=== PATIENT | female | born 1930 | race Caucasian/White ===

== ENCOUNTER 2017-03-10 11:03 | Inpatient (IN) | payer MEDICARE ==
[~2017-03-10] VITALS: Ht 147.3 cm; Wt 80.1 kg
[~2017-03-10 11:03] MED LIST: ACET325T51 PO; ASPI-555 PO; BISA10S PR; CHOL500045 PO; CLON-465 PO; CLOP75TA32 PO; FAMO-136 PO; FLUO20TA29 PO; FURO40TA5 PO; GABA-529 PO; INSU100V12 SQ; LEVO25TA54 PO; MAGN400O17 PO; METO200T49 PO; OLME40TA8 PO; POTA20TA82 PO; RANO10003 PO; SIMV40TA59 PO; TRAM50TA4 PO; [UNRECOGNIZED DRUG - CODE] PO
[2017-03-10 11:26] VITALS: BP 150/70
[2017-03-10 12:31] LABS: HEMATOCRIT 31.8 % (36-48); MEAN CORPUSCULAR HEMOGLOBIN 36.8 pg (27.0-33.0); MEAN CORPUSCULAR HGB CONC 35.2 g/dL (32.0-36.0); MEAN CORPUSCULAR VOLUME 104.6 fL (79-99); PLATELET COUNT (AUTO) 163 K/uL (130-400); RED BLOOD CELL COUNT(AUTO) 3.04 MIL/uL (4.00-5.50); WHITE BLOOD COUNT (AUTO) 12.5 K/uL (4.8-10.8)
[2017-03-10 12:39] LABS: POTASSIUM 3.4 mmol/L (3.5-5.1)
[2017-03-10] MEDS ORDERED: DEXTROSE 50%-WATER 50 ML DISP.SYRIN IV PRN ×2 (13:45→14:00)
[2017-03-10] MEDS ORDERED: GLUCAGON 1MG KIT 1 MG ML IM PRN ×2 (13:45→14:00)
[2017-03-10] MEDS ORDERED: DEXTROSE 50%-WATER 50 ML DISP.SYRIN IV ONE (13:46)
[2017-03-10] MEDS ORDERED: POTASSIUM CHLORIDE 10% ELIXIR 20 MEQ/15 ML UDCUP PO PRN (14:00)
[2017-03-10] MEDS: SODIUM CHLORIDE 0.9% 1000ML 1,000 ML IV SCH (14:00)
[2017-03-10] MEDS ORDERED: POTASSIUM CHLORIDE 20MEQ/100ML 100 ML IV PRN (14:00)
[2017-03-10] MEDS ORDERED: LIDOCAINE HCL-MPF 1% 2ML VIAL IJ PRN (14:00)
[2017-03-10] MEDS ORDERED: PROMETHAZINE HCL 25 MG/ML 1ML AMPULE IM PRN (14:15)
[2017-03-10 16:00] VITALS: BP 152/65
[2017-03-10] MEDS: INSULIN R PO SSI SQ SCH ×2 (16:30→21:00)
[2017-03-10] MEDS: LEVOFLOXACIN 250 MG/D5W 50ML 50 ML IVPB SCH (17:33)
[2017-03-10] MEDS: IPRATROPIUM/ALBUTEROL SULFATE 3 ML SOLUTION IH SCH ×2 (19:00→23:46)
[2017-03-10 20:00] VITALS: BP 157/69
[2017-03-10] MEDS ORDERED: ACETAMINOPHEN 325 MG TAB PO PRN (20:15)
[2017-03-10] MEDS ORDERED: BISA10SU61 RC (20:15)
[2017-03-10] MEDS ORDERED: ASCO10007 PO (20:15)
[2017-03-10] MEDS ORDERED: METO25TA6 PO (20:15)
[2017-03-10] MEDS ORDERED: CLOT15C TP (20:15)
[2017-03-10] MEDS ORDERED: CYAN500 PO (20:15)
[2017-03-10] MEDS ORDERED: MOM30 PO (20:15)
[2017-03-10] MEDS ORDERED: POTA10TA14 PO (20:15)
[2017-03-10] MEDS ORDERED: CLOP75TA32 PO (20:15)
[2017-03-10] MEDS ORDERED: CELE-84 PO (20:15)
[2017-03-10] MEDS ORDERED: MAGNESIUM HYDROXIDE 30 ML/UDCUP PO SCH (20:15)
[2017-03-10] MEDS ORDERED: INSU100V12 SQ ×2 (20:15)
[2017-03-10] MEDS ORDERED: FURO40TA5 PO (20:15)
[2017-03-10] MEDS ORDERED: GABA-529 PO ×2 (20:15)
[2017-03-10] MEDS ORDERED: BISACODYL 10 MG SUPP.RECT RC PRN (20:15)
[2017-03-10] MEDS ORDERED: CHOL100018 PO (20:15)
[2017-03-10] MEDS ORDERED: SENN1TAB72 PO (20:15)
[2017-03-10] MEDS ORDERED: LEVO25TA54 PO (20:15)
[2017-03-10] MEDS ORDERED: ASPI-555 PO (20:15)
[2017-03-10] MEDS ORDERED: FLUO20TA29 PO (20:15)
[2017-03-10] MEDS ORDERED: ATOR40TA69 PO (20:15)
[2017-03-10] MEDS ORDERED: RANO500T3 PO (20:15)
[2017-03-10] MEDS ORDERED: FURO20TA4 PO (20:15)
[2017-03-10] MEDS ORDERED: PANT40TA25 PO (20:15)
[2017-03-10] MEDS ORDERED: SENNA DOCUSATE SODIUM PO PRN (20:15)
[2017-03-10] MEDS ORDERED: METO-391 PO (20:15)
[2017-03-10] MEDS ORDERED: ACET325T51 PO (20:15)
[2017-03-10 20:45] LABS: APPEARANCE,URINE Clear (CLEAR); BILIRUBIN,URINE Negative (NEGATIVE); COLOR,URINE Dark Yellow (YELLOW); GLUCOSE, URINE (UA) Negative (NEGATIVE); KETONES,URINE Negative (NEGATIVE); LEUKOCYTE ESTERASE ,URINE Trace (NEGATIVE); NITRATE,URINE Positive (NEGATIVE); OCCULT BLOOD,URINE Negative (NEGATIVE); PROTEIN,URINE Negative (NEGATIVE)
[2017-03-10 20:57] LABS: BACTERIA,URINE Moderate /HPF (None Seen); RBC,URINE None Seen /HPF (0-1); SQUAMOUS EPITHELIAL CELL,UR 0-2 /LPF (0-2); WBC,URINE 0-1 /HPF (0-1)
[2017-03-10] MEDS ORDERED: INSULIN DETEMIR 10ML 100 UNIT/ML 10ML SQ SCH (21:00)
[2017-03-10] MEDS: ATORVASTATIN CALCIUM 40 MG TABLET PO SCH (21:47)
[2017-03-10] MEDS: RANOLAZINE 500 MG TAB.SR.12H PO SCH (21:47)
[2017-03-10] MEDS: GABAPENTIN 100 MG CAPSULE PO SCH (21:48)
[2017-03-10] MEDS: INSULIN GLARGINE 100 UNITS/ML 10 ML VIAL SQ SCH (21:53)
[2017-03-10] MEDS: POTASSIUM CHLORIDE 20 MEQ ERTAB PO PRN (21:59)
[2017-03-10] MEDS ORDERED: ACETAMINOPHEN EXTRA STRENGTH 500 MG TABLET ONE (23:02)
[2017-03-11] VITALS (7 sets, daily range): BP systolic 114–162; BP diastolic 50–71
[2017-03-11] MEDS: SODIUM CHLORIDE 0.9% 1000ML 1,000 ML IV SCH (03:20)
[2017-03-11] MEDS: IPRATROPIUM/ALBUTEROL SULFATE 3 ML SOLUTION IH SCH ×4 (06:29→23:42)
[2017-03-11] MEDS: INSULIN R PO SSI SQ SCH ×4 (06:38→21:00)
[2017-03-11] MEDS: LEVOTHYROXINE 25 MCG TABLET PO SCH (06:41)
[2017-03-11] MEDS: INSULIN GLARGINE 100 UNITS/ML 10 ML VIAL SQ SCH ×3 (07:30→21:37)
[2017-03-11] MEDS: Cholecalciferol (Vitamin D3) (Vitamin D3) 1,000 UNIT PO SCH (09:00)
[2017-03-11] MEDS: Metoprolol Succinate 50 MG PO SCH (09:00)
[2017-03-11] MEDS: CYANOCOBALAMIN (VITAMIN B-12) 1,000 MCG TABLET PO SCH (09:00)
[2017-03-11] MEDS: PANTOPRAZOLE SODIUM 40 MG TABLET.DR PO SCH (09:25)
[2017-03-11] MEDS: ASPIRIN 81 MG EC TAB PO SCH (09:25)
[2017-03-11] MEDS: FUROSEMIDE 20 MG TABLET PO SCH (09:27)
[2017-03-11] MEDS: ASCORBIC ACID 500 MG TAB PO SCH (09:27)
[2017-03-11] MEDS: POTASSIUM CHLORIDE 10 MEQ/TAB.SA PO SCH (09:27)
[2017-03-11] MEDS: FLUOXETINE HCL 20 MG CAPSULE PO SCH (09:28)
[2017-03-11] MEDS: GABAPENTIN 100 MG CAPSULE PO SCH ×2 (09:28→21:20)
[2017-03-11] MEDS: CELECOXIB 200 MG CAP PO SCH (09:29)
[2017-03-11] MEDS: RANOLAZINE 500 MG TAB.SR.12H PO SCH ×2 (09:29→21:14)
[2017-03-11] MEDS: CLOPIDOGREL BISULFATE 75 MG TAB PO SCH (09:29)
[2017-03-11] MEDS: LEVOFLOXACIN 250 MG/D5W 50ML 50 ML IVPB SCH (14:29)
[2017-03-11] MEDS ORDERED: GUAIFENESIN-DM 200/20 MG 10 ML PO PRN (16:00)
[2017-03-11] MEDS: ATORVASTATIN CALCIUM 40 MG TABLET PO SCH (21:20)
[2017-03-11] MEDS: ACETAMINOPHEN EXTRA STRENGTH 500 MG TABLET PO SCH (21:21)
[2017-03-11] MEDS ORDERED: INSULIN GLARGINE 100 UNITS/ML 10 ML VIAL SQ ONE (21:35)
[2017-03-12 04:00] VITALS: BP 157/61
[2017-03-12 04:10] LABS: BASOPHILS % (AUTO) 0.4 % (0.0-5.0); EOSINOPHILS % (AUTO) 5.3 % (0.0-8.0); HEMATOCRIT 28.9 % (36-48); LYMPHOCYTES % (AUTO) 25.6 % (21.0-51.0); MEAN CORPUSCULAR HEMOGLOBIN 35.9 pg (27.0-33.0); MEAN CORPUSCULAR HGB CONC 34.2 g/dL (32.0-36.0); MEAN CORPUSCULAR VOLUME 104.9 fL (79-99); MONOCYTES % (AUTO) 13.3 % (3.0-13.0); NEUTROPHILS % (AUTO) 55.4 % (40.0-77.0); PLATELET COUNT (AUTO) 139 K/uL (130-400); RED BLOOD CELL COUNT(AUTO) 2.75 MIL/uL (4.00-5.50); RED CELL DISTRIBUTION WIDTH 14.1 % (11.0-15.5); WHITE BLOOD COUNT (AUTO) 6.3 K/uL (4.8-10.8)
[2017-03-12 04:31] LABS: CREATININE 1.2 mg/dL (0.5-1.5); POTASSIUM 3.3 mmol/L (3.5-5.1)
[2017-03-12 04:42] LABS: B-TYPE NATRIURETIC PEPTIDE 146 pg/mL (0-100)
[2017-03-12] MEDS: LEVOTHYROXINE 25 MCG TABLET PO SCH (06:19)
[2017-03-12] MEDS: POTASSIUM CHLORIDE 20 MEQ ERTAB PO PRN ×2 (06:26→21:30)
[2017-03-12] MEDS: INSULIN R PO SSI SQ SCH ×4 (06:27→21:33)
[2017-03-12] MEDS: IPRATROPIUM/ALBUTEROL SULFATE 3 ML SOLUTION IH SCH ×4 (07:07→23:27)
[2017-03-12] MEDS: INSULIN GLARGINE 100 UNITS/ML 10 ML VIAL SQ SCH ×2 (07:30→21:32)
[2017-03-12 08:00] VITALS: BP 179/74
[2017-03-12] MEDS: RANOLAZINE 500 MG TAB.SR.12H PO SCH ×2 (08:26→21:27)
[2017-03-12] MEDS: GABAPENTIN 100 MG CAPSULE PO SCH ×2 (08:27→21:27)
[2017-03-12] MEDS: ASPIRIN 81 MG EC TAB PO SCH (08:27)
[2017-03-12] MEDS: ASCORBIC ACID 500 MG TAB PO SCH (08:27)
[2017-03-12] MEDS: CLOPIDOGREL BISULFATE 75 MG TAB PO SCH (08:27)
[2017-03-12] MEDS: POTASSIUM CHLORIDE 10 MEQ/TAB.SA PO SCH (08:27)
[2017-03-12] MEDS: CELECOXIB 200 MG CAP PO SCH (08:27)
[2017-03-12] MEDS: FUROSEMIDE 20 MG TABLET PO SCH (08:28)
[2017-03-12] MEDS: FLUOXETINE HCL 20 MG CAPSULE PO SCH (08:28)
[2017-03-12] MEDS: METOPROLOL TARTRATE 25 MG TAB PO SCH ×2 (08:33→21:27)
[2017-03-12] MEDS: PANTOPRAZOLE SODIUM 40 MG TABLET.DR PO SCH (08:42)
[2017-03-12] MEDS: Cholecalciferol (Vitamin D3) (Vitamin D3) 1,000 UNIT PO SCH (08:42)
[2017-03-12] MEDS: Metoprolol Succinate 50 MG PO SCH (08:42)
[2017-03-12] MEDS: CYANOCOBALAMIN (VITAMIN B-12) 1,000 MCG TABLET PO SCH (08:43)
[2017-03-12] MEDS: ACETAMINOPHEN 325 MG TAB PO PRN ×2 (08:43→13:55)
[2017-03-12] MEDS ORDERED: FUROSEMIDE 40 MG TABLET PO SCH (09:00)
[2017-03-12 11:54] VITALS: BP 176/87
[2017-03-12] MEDS: LEVOFLOXACIN 250 MG/D5W 50ML 50 ML IVPB SCH (13:55)
[2017-03-12 16:00] VITALS: BP 163/74
[2017-03-12] MEDS ORDERED: LOSARTAN 50 MG TABLET PO SCH (16:45)
[2017-03-12 20:00] VITALS: BP 178/75
[2017-03-12] MEDS: ACETAMINOPHEN EXTRA STRENGTH 500 MG TABLET PO SCH (21:28)
[2017-03-12] MEDS: ATORVASTATIN CALCIUM 40 MG TABLET PO SCH (21:28)
[2017-03-12 23:52] VITALS: BP 154/68
[2017-03-13 03:58] VITALS: BP 168/71
[2017-03-13] MEDS: LEVOTHYROXINE 25 MCG TABLET PO SCH (06:04)
[2017-03-13] MEDS: INSULIN R PO SSI SQ SCH ×4 (06:04→21:01)
[2017-03-13] MEDS: IPRATROPIUM/ALBUTEROL SULFATE 3 ML SOLUTION IH SCH ×4 (06:52→23:25)
[2017-03-13] MEDS: INSULIN GLARGINE 100 UNITS/ML 10 ML VIAL SQ SCH ×2 (07:30→21:02)
[2017-03-13 08:28] VITALS: BP 171/78
[2017-03-13] MEDS ORDERED: PANTOPRAZOLE SODIUM 40 MG TABLET.DR PO ONE (08:52)
[2017-03-13] MEDS ORDERED: METOPROLOL TARTRATE 25 MG TAB PO ONE (08:54)
[2017-03-13] MEDS ORDERED: ASPIRIN 81 MG EC TAB PO ONE (08:55)
[2017-03-13] MEDS: Metoprolol Succinate 50 MG PO SCH (09:00)
[2017-03-13] MEDS: Cholecalciferol (Vitamin D3) (Vitamin D3) 1,000 UNIT PO SCH (09:00)
[2017-03-13] MEDS: CLOTRIMAZOLE 30 GM CREAM.GM. TP SCH (09:00)
[2017-03-13] MEDS ORDERED: LOSARTAN 50 MG TABLET PO SCH ×2 (09:00)
[2017-03-13] MEDS: ASPIRIN 81 MG EC TAB PO SCH (09:28)
[2017-03-13] MEDS: ASCORBIC ACID 500 MG TAB PO SCH (09:28)
[2017-03-13] MEDS: PANTOPRAZOLE SODIUM 40 MG TABLET.DR PO SCH (09:29)
[2017-03-13] MEDS: RANOLAZINE 500 MG TAB.SR.12H PO SCH ×2 (09:29→20:56)
[2017-03-13] MEDS: CLOPIDOGREL BISULFATE 75 MG TAB PO SCH (09:29)
[2017-03-13] MEDS: METOPROLOL TARTRATE 25 MG TAB PO SCH ×2 (09:29→20:53)
[2017-03-13] MEDS: POTASSIUM CHLORIDE 10 MEQ/TAB.SA PO SCH ×2 (09:29→20:53)
[2017-03-13] MEDS: FUROSEMIDE 20 MG TABLET PO SCH (09:29)
[2017-03-13] MEDS: GABAPENTIN 100 MG CAPSULE PO SCH ×2 (09:30→20:52)
[2017-03-13] MEDS: CELECOXIB 200 MG CAP PO SCH (09:30)
[2017-03-13] MEDS: FLUOXETINE HCL 20 MG CAPSULE PO SCH (09:30)
[2017-03-13] MEDS: LOSARTAN 50 MG TABLET PO SCH (09:30)
[2017-03-13] MEDS: CYANOCOBALAMIN (VITAMIN B-12) 1,000 MCG TABLET PO SCH (09:32)
[2017-03-13 12:02] VITALS: BP 162/66
[2017-03-13] MEDS: LEVOFLOXACIN 250 MG/D5W 50ML 50 ML IVPB SCH (13:09)
[2017-03-13] MEDS: ACETAMINOPHEN 325 MG TAB PO PRN (13:09)
[2017-03-13 16:00] VITALS: BP 162/70
[2017-03-13 19:00] VITALS: BP 167/76
[2017-03-13] MEDS: ATORVASTATIN CALCIUM 40 MG TABLET PO SCH (20:53)
[2017-03-13] MEDS: ACETAMINOPHEN EXTRA STRENGTH 500 MG TABLET PO SCH (20:54)
[2017-03-14] VITALS: BP 186/74
[2017-03-14 04:00] VITALS: BP 155/63
[2017-03-14] MEDS: IPRATROPIUM/ALBUTEROL SULFATE 3 ML SOLUTION IH SCH ×2 (06:18→11:14)
[2017-03-14] MEDS: INSULIN R PO SSI SQ SCH ×2 (06:49→11:31)
[2017-03-14] MEDS: LEVOTHYROXINE 25 MCG TABLET PO SCH (06:49)
[2017-03-14] MEDS: INSULIN GLARGINE 100 UNITS/ML 10 ML VIAL SQ SCH (06:50)
[2017-03-14 08:11] VITALS: BP 139/55
[2017-03-14] MEDS: CLOTRIMAZOLE 30 GM CREAM.GM. TP SCH (09:00)
[2017-03-14] MEDS: Cholecalciferol (Vitamin D3) (Vitamin D3) 1,000 UNIT PO SCH (09:00)
[2017-03-14] MEDS: Metoprolol Succinate 50 MG PO SCH (09:00)
[2017-03-14] MEDS: FLUOXETINE HCL 20 MG CAPSULE PO SCH (09:56)
[2017-03-14] MEDS: RANOLAZINE 500 MG TAB.SR.12H PO SCH (09:57)
[2017-03-14] MEDS: GABAPENTIN 100 MG CAPSULE PO SCH (09:57)
[2017-03-14] MEDS: FUROSEMIDE 20 MG TABLET PO SCH (09:57)
[2017-03-14] MEDS: ASPIRIN 81 MG EC TAB PO SCH (09:57)
[2017-03-14] MEDS: CELECOXIB 200 MG CAP PO SCH (09:57)
[2017-03-14] MEDS: METOPROLOL TARTRATE 25 MG TAB PO SCH (09:57)
[2017-03-14] MEDS: LOSARTAN 50 MG TABLET PO SCH (09:57)
[2017-03-14] MEDS: POTASSIUM CHLORIDE 10 MEQ/TAB.SA PO SCH (09:58)
[2017-03-14] MEDS: CLOPIDOGREL BISULFATE 75 MG TAB PO SCH (09:58)
[2017-03-14] MEDS: ASCORBIC ACID 500 MG TAB PO SCH (09:58)
[2017-03-14] MEDS: PANTOPRAZOLE SODIUM 40 MG TABLET.DR PO SCH (09:58)
[2017-03-14 11:09] VITALS: BP 162/68
[2017-03-14] MEDS: LEVOFLOXACIN 250 MG/D5W 50ML 50 ML IVPB SCH (14:03)
[2017-03-14 16:21] VITALS: BP 161/79
== END 2017-03-14 16:20 | disposition home or self-care (01) | DRG 871 ==
LOC: EDH 11:03 → 3AH 11:04
PROVIDERS: ADMIT Internal Medicine; ATTEND Internal Medicine
PROC: 5A09357 Assistance with Respiratory Ventilation, Less than 24 Consecutive Hours, Continuous Positive Airway Pressure (ICD-10-PCS; principal; 2017-03-12)
PROC: 5A09357 Assistance with Respiratory Ventilation, Less than 24 Consecutive Hours, Continuous Positive Airway Pressure (ICD-10-PCS; 2017-03-14)
DX: A41.9 Sepsis, unspecified organism (principal); I50.43 Acute on chronic combined systolic (congestive) and diastolic (congestive) heart failure; D53.1 Other megaloblastic anemias, not elsewhere classified; E11.649 Type 2 diabetes mellitus with hypoglycemia without coma; E86.0 Dehydration; N39.0 Urinary tract infection, site not specified; E87.6 Hypokalemia; E78.5 Hyperlipidemia, unspecified; G47.33 Obstructive sleep apnea (adult) (pediatric); I11.0 Hypertensive heart disease with heart failure; I25.10 Atherosclerotic heart disease of native coronary artery without angina pectoris; M19.90 Unspecified osteoarthritis, unspecified site; I45.9 Conduction disorder, unspecified; Z79.899 Other long term (current) drug therapy; Z85.72 Personal history of non-Hodgkin lymphomas; Z91.19 Patient's noncompliance with other medical treatment and regimen; Z95.5 Presence of coronary angioplasty implant and graft; Z95.0 Presence of cardiac pacemaker; Z88.0 Allergy status to penicillin
CPT/HCPCS: 36415; 71045; 80048; 81001; 82947; 82948; 83880; 84132; 85025; 85027; 87040; 87088; 87186; 93005; 94640; 94664; 97039; J1815; J1956; J7070

== ENCOUNTER → 2017-03-28 | Outpatient (CLI) | payer MEDICARE ==
[~2017-03-28] MED LIST changes: +ASCO10007 PO; +ATOR40TA69 PO; -BISA10S PR; +BISA10SU61 RC; +CELE-84 PO; +CHOL100018 PO; -CHOL500045 PO; -CLON-465 PO; +CLOT15C TP; +CYAN500 PO; -FAMO-136 PO; +FURO20TA4 PO; -MAGN400O17 PO; -METO200T49 PO; +MOM30 PO; -OLME40TA8 PO; +PANT40TA25 PO; +POTA10TA14 PO; -POTA20TA82 PO; -RANO10003 PO; +RANO500T3 PO; +SENN1TAB72 PO; -SIMV40TA59 PO; -TRAM50TA4 PO; -[UNRECOGNIZED DRUG - CODE] PO
== END | disposition home or self-care (01) ==
LOC: RAH 11:25
PROVIDERS: ATTEND Internal Medicine Cardiovascular Disease
DX: I51.7 Cardiomegaly (principal); Z95.0 Presence of cardiac pacemaker
CPT/HCPCS: 71046

== ENCOUNTER → 2017-12-02 | Outpatient (CLI) | payer MEDICARE ==
[~2017-12-02] VITALS: Ht 149.9 cm; Wt 74.8 kg
[~2017-12-02] MED LIST changes: +REGADENOSON 0.4 MG/5 ML PF SYG IVP SCH
== END | disposition home or self-care (01) ==
LOC: SHCH 08:17
PROVIDERS: ATTEND Internal Medicine Cardiovascular Disease
DX: I49.5 Sick sinus syndrome (principal)
CPT/HCPCS: 78452; 93017; 96374; A9500 ×2; J2785

== ENCOUNTER 2018-02-13 09:10 | Inpatient (IN) | payer MEDICARE ==
[~2018-02-13] VITALS: Ht 157.5 cm; Wt 79.4 kg
[~2018-02-13 09:10] MED LIST changes: -REGADENOSON 0.4 MG/5 ML PF SYG IVP SCH
[2018-02-13 09:56] LABS: BASOPHILS % (AUTO) 0.5 % (0.0-5.0); EOSINOPHILS % (AUTO) 5.6 % (0.0-8.0); HEMATOCRIT 37.7 % (36-48); LYMPHOCYTES % (AUTO) 26.9 % (21.0-51.0); MEAN CORPUSCULAR HEMOGLOBIN 35.8 pg (27.0-33.0); MEAN CORPUSCULAR HGB CONC 33.6 g/dL (32.0-36.0); MEAN CORPUSCULAR VOLUME 106.5 fL (79-99); MONOCYTES % (AUTO) 8.2 % (3.0-13.0); NEUTROPHILS % (AUTO) 58.8 % (40.0-77.0); PLATELET COUNT (AUTO) 146 K/uL (130-400); RED BLOOD CELL COUNT(AUTO) 3.54 MIL/uL (4.00-5.50); RED CELL DISTRIBUTION WIDTH 12.9 % (11.0-15.5); WHITE BLOOD COUNT (AUTO) 8.9 K/uL (4.8-10.8)
[2018-02-13 10:09] LABS: INR 1.06 (0.85-1.15); PARTIAL THROMBOPLASTIN TIME 23.8 SEC (26.3-35.5); PROTHROMBIN TIME 11.1 SEC (9.6-11.6)
[2018-02-13 10:16] LABS: B-TYPE NATRIURETIC PEPTIDE 124 pg/mL (0-100)
[2018-02-13 10:55] LABS: POTASSIUM 4.1 mmol/L (3.5-5.1)
[2018-02-13 10:57] LABS: APPEARANCE,URINE Clear (CLEAR); BILIRUBIN,URINE Negative (NEGATIVE); COLOR,URINE Yellow (YELLOW); GLUCOSE, URINE (UA) Negative (NEGATIVE); KETONES,URINE Negative (NEGATIVE); LEUKOCYTE ESTERASE ,URINE Trace (NEGATIVE); NITRATE,URINE Positive (NEGATIVE); OCCULT BLOOD,URINE Negative (NEGATIVE); PROTEIN,URINE Negative (NEGATIVE)
[2018-02-13 11:00] LABS: ALBUMIN 3.1 g/dL (3.5-5.0); BILIRUBIN,TOTAL 0.5 mg/dL (0.2-1.0); TOTAL PROTEIN, SERUM 6.8 g/dL (6.0-8.3)
[2018-02-13] MEDS ORDERED: CEFTRIAXONE SODIUM 1 GM ONE (11:01)
[2018-02-13] MEDS ORDERED: AZITHROMYCIN 250 MG TABLET PO ONE (11:02)
[2018-02-13] MEDS ORDERED: SODIUM CHLORIDE 0.9% 100 ML IV ONE (11:02)
[2018-02-13 11:15] LABS: BACTERIA,URINE Many /HPF (None Seen); RBC,URINE 0-1 /HPF (0-1); WBC,URINE 0-1 /HPF (0-1)
[2018-02-13 11:16] LABS: SQUAMOUS EPITHELIAL CELL,UR Rare /HPF (0-2)
[2018-02-13] MEDS: SODIUM CHLORIDE 0.9% 1000ML 1,000 ML IV SCH (12:32)
[2018-02-13] MEDS ORDERED: CEFTRIAXONE SODIUM 1 GM IV SCH (12:45)
[2018-02-13] MEDS ORDERED: LEVOFLOXACIN 500 MG/D5W 100 ML 100 ML IV SCH (12:45)
[2018-02-13] MEDS: AZITHROMYCIN 500MG+NS 250ML 250 ML IV SCH (12:45)
[2018-02-13 14:21] VITALS: BP 147/72
[2018-02-13] MEDS ORDERED: PNEUMOCOCCAL VACCINE POLYVALENT 0.5 ML/VIAL [PPV] IM ONE (15:30)
[2018-02-13 16:27] VITALS: BP 174/61
[2018-02-13] MEDS ORDERED: HYDRALAZINE HCL 20 MG/ML VIAL IV ONE (16:45)
[2018-02-13] MEDS: METHYLPREDNISOLONE SOD SUCC 125MG/2ML VIAL IV SCH ×2 (17:40→23:45)
[2018-02-13 18:36] VITALS: BP 130/68
[2018-02-13] MEDS: IPRATROPIUM/ALBUTEROL SULFATE 3 ML SOLUTION IH SCH (19:00)
[2018-02-13 19:13] VITALS: BP 131/67
[2018-02-13] MEDS ORDERED: ATOR40TA69 PO (19:27)
[2018-02-13] MEDS ORDERED: ASPI-1197 PO (19:27)
[2018-02-13] MEDS ORDERED: ALBU2.5V2 IH (19:27)
[2018-02-13] MEDS ORDERED: GABA-529 PO (19:27)
[2018-02-13] MEDS ORDERED: CLOT15C TP (19:27)
[2018-02-13] MEDS ORDERED: FLUO20CA30 PO (19:27)
[2018-02-13] MEDS ORDERED: TRI2515C TP (19:27)
[2018-02-13] MEDS ORDERED: FURO20TA6 PO (19:27)
[2018-02-13] MEDS ORDERED: BISA10SU61 RC (19:27)
[2018-02-13] MEDS ORDERED: NYST15CR TP (19:27)
[2018-02-13] MEDS ORDERED: CLOP75TA14 PO (19:27)
[2018-02-13] MEDS ORDERED: INSU200I SQ (19:27)
[2018-02-13] MEDS ORDERED: ACET325T51 PO (19:27)
[2018-02-13] MEDS ORDERED: PANT40TA PO (19:27)
[2018-02-13] MEDS ORDERED: CYAN500 PO (19:27)
[2018-02-13] MEDS ORDERED: FURO40TA7 PO (19:27)
[2018-02-13] MEDS ORDERED: RANO500T2 PO (19:27)
[2018-02-13] MEDS ORDERED: CELE-84 PO (19:27)
[2018-02-13] MEDS ORDERED: INSU100V12 SQ ×2 (19:27)
[2018-02-13] MEDS ORDERED: MOM30 PO (19:27)
[2018-02-13] MEDS ORDERED: CHOL100040 PO (19:27)
[2018-02-13] MEDS ORDERED: ASCO10007 PO (19:27)
[2018-02-13] MEDS ORDERED: POTA20TA82 PO (19:27)
[2018-02-13] MEDS ORDERED: SENS PO (19:27)
[2018-02-13] MEDS ORDERED: LOSA50TA2 PO (19:27)
[2018-02-13] MEDS ORDERED: LEVO25TA9 PO (19:27)
[2018-02-13] MEDS ORDERED: NYSTATIN 30 GM CREAM.GM. TP PRN (19:45)
[2018-02-13] MEDS ORDERED: BISACODYL 10 MG SUPP.RECT RC PRN (19:45)
[2018-02-13] MEDS: GABAPENTIN 100 MG CAPSULE PO SCH (20:48)
[2018-02-13] MEDS: RANOLAZINE 500 MG TAB.SR.12H PO SCH (20:48)
[2018-02-13] MEDS: ATORVASTATIN CALCIUM 40 MG TABLET PO SCH (20:48)
[2018-02-13] MEDS: ASCORBIC ACID 500 MG TAB PO SCH (20:49)
[2018-02-13] MEDS: ACETAMINOPHEN 325 MG TAB PO PRN (20:49)
[2018-02-13] MEDS: INSULIN GLARGINE 100 UNITS/ML 10 ML VIAL SQ SCH (21:00)
[2018-02-13] MEDS: CLOTRIMAZOLE 30 GM CREAM.GM. TP SCH (21:00)
[2018-02-13 23:36] VITALS: BP 144/65
[2018-02-14] MEDS: IPRATROPIUM/ALBUTEROL SULFATE 3 ML SOLUTION IH SCH ×4 (00:05→19:13)
[2018-02-14] MEDS: SODIUM CHLORIDE 0.9% 1000ML 1,000 ML IV SCH (01:52)
[2018-02-14 03:37] VITALS: BP 154/75
[2018-02-14] MEDS: TRIAMCINOLONE 0.025% 15 GM CREAM TP PRN (04:36)
[2018-02-14 04:54] LABS: BASOPHILS % (AUTO) 0.2 % (0.0-5.0); EOSINOPHILS % (AUTO) 0.1 % (0.0-8.0); HEMATOCRIT 36.6 % (36-48); LYMPHOCYTES % (AUTO) 13.7 % (21.0-51.0); MEAN CORPUSCULAR HEMOGLOBIN 35.2 pg (27.0-33.0); MEAN CORPUSCULAR HGB CONC 33.1 g/dL (32.0-36.0); MEAN CORPUSCULAR VOLUME 106.3 fL (79-99); MONOCYTES % (AUTO) 1.2 % (3.0-13.0); NEUTROPHILS % (AUTO) 84.8 % (40.0-77.0); NUCLEATED RED BLOOD CELLS 0.1 % (0.0-0.19); PLATELET COUNT (AUTO) 128 K/uL (130-400); RED BLOOD CELL COUNT(AUTO) 3.44 MIL/uL (4.00-5.50); RED CELL DISTRIBUTION WIDTH 13.5 % (11.0-15.5); WHITE BLOOD COUNT (AUTO) 4.1 K/uL (4.8-10.8)
[2018-02-14 05:06] LABS: CREATININE 1.2 mg/dL (0.5-1.5)
[2018-02-14] MEDS ORDERED: LEVOTHYROXINE 25 MCG TABLET ONE (05:47)
[2018-02-14] MEDS: LEVOTHYROXINE 25 MCG TABLET PO SCH (05:50)
[2018-02-14] MEDS: METHYLPREDNISOLONE SOD SUCC 125MG/2ML VIAL IV SCH (05:50)
[2018-02-14] MEDS ORDERED: GLUCAGON 1MG KIT 1 MG ML IM PRN (06:00)
[2018-02-14] MEDS ORDERED: DEXTROSE 50%-WATER 50 ML DISP.SYRIN IV PRN (06:00)
[2018-02-14] MEDS: INSULIN HUMULIN R 100 UNIT/ML 3ML SQ SCH ×4 (06:24→20:36)
[2018-02-14] MEDS ORDERED: METHYLPREDNISOLONE SOD SUCC 40MG/ML 1ML IVP SCH (07:15)
[2018-02-14] MEDS: PANTOPRAZOLE SODIUM 40 MG TABLET.DR PO SCH ×2 (07:26→09:03)
[2018-02-14 07:46] VITALS: BP 143/56
[2018-02-14] MEDS: INSULIN GLARGINE 100 UNITS/ML 10 ML VIAL SQ SCH ×2 (08:53→20:37)
[2018-02-14] MEDS: INSULIN LISPRO 100 UNIT/ML 3ML SQ SCH (08:53)
[2018-02-14] MEDS: ASCORBIC ACID 500 MG TAB PO SCH ×2 (08:59→20:25)
[2018-02-14] MEDS ORDERED: SENNA PO PRN (09:00)
[2018-02-14] MEDS ORDERED: DOCUSATE SODIUM PO PRN (09:00)
[2018-02-14] MEDS: **HM**Cholecalciferol (Vitamin D3) (Vitamin D3) 1,000 UNIT PO SCH (09:00)
[2018-02-14] MEDS: CLOTRIMAZOLE 30 GM CREAM.GM. TP SCH ×2 (09:00→19:45)
[2018-02-14] MEDS ORDERED: [UNRECOGNIZED DRUG - OTHER] PO PRN (09:00)
[2018-02-14] MEDS ORDERED: FUROSEMIDE 20 MG TABLET PO SCH (09:00)
[2018-02-14] MEDS: GABAPENTIN 100 MG CAPSULE PO SCH ×2 (09:01→20:26)
[2018-02-14] MEDS: CYANOCOBALAMIN (VITAMIN B-12) 1,000 MCG TABLET PO SCH (09:01)
[2018-02-14] MEDS: LOSARTAN 50 MG TABLET PO SCH (09:02)
[2018-02-14] MEDS: CELECOXIB 200 MG CAP PO SCH (09:02)
[2018-02-14] MEDS: FLUOXETINE HCL 20 MG CAPSULE PO SCH (09:03)
[2018-02-14] MEDS: POTASSIUM CHLORIDE 20 MEQ ERTAB PO SCH (09:03)
[2018-02-14] MEDS: ASPIRIN 81MG TAB.CHEW PO SCH (09:03)
[2018-02-14] MEDS: RANOLAZINE 500 MG TAB.SR.12H PO SCH ×2 (09:04→20:25)
[2018-02-14] MEDS: ENOXAPARIN SODIUM 30 MG/0.3 ML SQ SCH (09:04)
[2018-02-14 11:38] VITALS: BP 117/59
--- NOTE | 2018-02-14 12:27 | NUR ---
BLOOD GLUCOSE NOTIFIED HOSTPITALIST ERIBERTO SOMMERS NP OF BLOOD GLUCOSE 414 AND MEASURES TAKEN. NO NEW ORDERS PLACED.
[2018-02-14] MEDS: AZITHROMYCIN 500MG+NS 250ML 250 ML IV SCH (13:23)
--- NOTE | 2018-02-14 13:27 | NUR ---
BEDSIDE DYSPHAGIA EVAL COMPLETE. NO S/S OF ASPIRATION OBSERVED. Pt REQUIRES DIET MODIFICATIONS SECONDARY TO HX OF C-SPINE FUSION. PATIENT INFORMATION: Pt IS 88 Y.O. FEMALE REFERRED FOR DYSPHAGIA EVAL SECONDARY TO HX OF DYSPHAGIA FOLLOWING C-SPINE FUSION SX IN 2017. Pt SEEN BY THIS COMPUTERIZED MILL MILL RECORDER AT THIS FACILITY FOR MBSS X2 (05/06/16, 05/09/16) FOLLOWING C-SPINE SURGERY WITH RECOMMENDATION FOR SHORT-TERM ALTERNATE MEANS OF NUTRITION/HYDRATION SECONDARY TO SIGNIFICANT PHARYNGEAL SWELLING FOLLOWING SURGERY. AT THE TIME, Pt RECEIVED A PEG TUBE AND WAS TRANSFERRED TO [facility] WHERE THEY COMPLETED ANOTHER MBSS AND CLEARED Pt FOR ORAL INTAKE OF MECH SOFT TEXTURES AND THIN LIQUIDS, PER Pt. Pt HAS BEEN TOLERATING THIS DIET BUT DOES REPORT CHOKING EPISODES WITH BREADS, LARGE PILLS, AND BIG PIECES OF MEAT. PMHX ALSO SIGNIFICANT FOR HTN, DYSLIPIDEMIA, CAD, NEWTON, HYPOTHYROIDISM, AND C-SPINE FUSION OF C3-C6. EVALUATION: Pt'S SWALLOW FUNCTION AND EFFICIENCY ARE WFL. NO S/S OF ASPIRATION OBSERVED. Pt HAS ADEQUATE ORAL STRENGTH AND ROM, TIMELY PHARYNGEAL RESPONSE, GOOD LARYNGEAL ELEVATION/EXCURSION, AND APPROPRIATE AIRWAY PROTECTION. Pt WITH C/O FOOD, ESPECIALLY DRY FOODS, STICKING IN HER THROAT AND CHOKING EPISODES MOST LIKELY SECONDARY TO HARDWARE INFRINGEMENT INTO PHARYNX FROM PREVIOUS C-SPINE FUSION SX. DIET TEXTURE ALTERATIONS AND COMPENSATORY STRATEGIES WILL BE RECOMMENDED TO ELIMINATE/REDUCE GLOBUS SENSATION AND CHOKING EPISODES. RECOMMENDATIONS: 1. MECH SOFT - GROUND TEXTURES, EXTRA GRAVY TO MEATS 2. THIN LIQUIDS 3. ALTERNATE BITES/SIPS, SMALL BITES/SIPS, 1 BITE/SIP PER SWALLOW 4. SMALL PILLS WITH PUREE, LARGE PILLS CRUSHED WITH PUREE (CHECK WITH MD PRIOR TO CRUSHING) 5. COMPUTERIZED MILL MILL RECORDER TO F/U IN 2-3 DAYS FOR DIET TEXTURE APPROPRIATENESS Addendum: 02/14/18 at 1339 by TAZ WATSON, [facility] Amended: Links added.
--- NOTE | 2018-02-14 16:30 | NUR ---
DCP PLAN GP REFERRAL SENT TO GP [facility] /[facility] CONSENT/ PENDING SIGNATURE- Addendum: 02/14/18 at 1919 by TRISTEN FERNANDEZ RN CM Amended: Links added.
--- NOTE | 2018-02-14 16:35 | NUR ---
Nutrition Assessment: Pt triggered for nutrition screen due to poor po intake. Pt is on a [facility] soft ground meats diet with extra gravy on meats. Pt has been screened by SECURITY ALARM TECHNICIAN. Pt reports poor po intake over past few weeks. Pt has a good breakfast and lunch today as per nurse. labs reviewed. BMI 32.2 (obese). Pt with no skin breakdown. [facility] 02/12/18. RD to monitor po intake. RD to f/u in 3-5 days. Addendum: 02/14/18 at [address] Amended: Links added.
[2018-02-14 16:49] VITALS: BP 132/71
[2018-02-14] MEDS: CLOPIDOGREL BISULFATE 75 MG TAB PO SCH (17:06)
[2018-02-14] MEDS: LEVOFLOXACIN 500 MG/D5W 100 ML 100 ML IV SCH (18:51)
[2018-02-14 19:27] VITALS: BP 118/52
[2018-02-14] MEDS: ATORVASTATIN CALCIUM 40 MG TABLET PO SCH (20:26)
[2018-02-14] MEDS: ACETAMINOPHEN 325 MG TAB PO PRN (20:27)
[2018-02-14 23:08] VITALS: BP 126/52
[2018-02-15] MEDS: IPRATROPIUM/ALBUTEROL SULFATE 3 ML SOLUTION IH SCH ×5 (00:06→23:24)
[2018-02-15 03:34] VITALS: BP 117/54
[2018-02-15] MEDS ORDERED: PNEUMOCOCCAL VACCINE POLYVALENT 0.5 ML/VIAL [PPV] ONE (05:43)
[2018-02-15] MEDS: LEVOTHYROXINE 25 MCG TABLET PO SCH (05:44)
[2018-02-15] MEDS: INSULIN HUMULIN R 100 UNIT/ML 3ML SQ SCH ×4 (05:58→21:38)
[2018-02-15 06:15] LABS: BASOPHILS % (AUTO) 0.2 % (0.0-5.0); HEMATOCRIT 32.9 % (36-48); MEAN CORPUSCULAR HEMOGLOBIN 35.6 pg (27.0-33.0); MEAN CORPUSCULAR HGB CONC 33.4 g/dL (32.0-36.0); MEAN CORPUSCULAR VOLUME 106.3 fL (79-99); MONOCYTES % (AUTO) 7.9 % (3.0-13.0); NEUTROPHILS % (AUTO) 72.9 % (40.0-77.0); NUCLEATED RED BLOOD CELLS 0.1 % (0.0-0.19); PLATELET COUNT (AUTO) 130 K/uL (130-400); RED CELL DISTRIBUTION WIDTH 13.3 % (11.0-15.5); WHITE BLOOD COUNT (AUTO) 10.7 K/uL (4.8-10.8)
[2018-02-15 06:31] LABS: CREATININE 1.4 mg/dL (0.5-1.5); POTASSIUM 4.1 mmol/L (3.5-5.1)
[2018-02-15] MEDS: INSULIN LISPRO 100 UNIT/ML 3ML SQ SCH (07:30)
[2018-02-15] MEDS: INSULIN GLARGINE 100 UNITS/ML 10 ML VIAL SQ SCH ×2 (07:30→21:36)
[2018-02-15] MEDS: PANTOPRAZOLE SODIUM 40 MG TABLET.DR PO SCH ×2 (07:31→09:44)
[2018-02-15] MEDS ORDERED: PHENOL 177 ML BOTTLE PO PRN (08:00)
[2018-02-15] MEDS ORDERED: BENZOCAINE/MENTH/CETYLPYRD CL 1 EACH LOZENGE MM PRN (08:00)
[2018-02-15 08:04] VITALS: BP 147/80
[2018-02-15] MEDS: **HM**Cholecalciferol (Vitamin D3) (Vitamin D3) 1,000 UNIT PO SCH (09:00)
[2018-02-15] MEDS: CLOTRIMAZOLE 30 GM CREAM.GM. TP SCH ×2 (09:00→21:00)
[2018-02-15] MEDS ORDERED: FUROSEMIDE 40 MG TABLET PO SCH (09:00)
[2018-02-15] MEDS: FLUOXETINE HCL 20 MG CAPSULE PO SCH (09:44)
[2018-02-15] MEDS: ASCORBIC ACID 500 MG TAB PO SCH ×2 (09:44→21:23)
[2018-02-15] MEDS: GABAPENTIN 100 MG CAPSULE PO SCH ×2 (09:44→21:22)
[2018-02-15] MEDS: RANOLAZINE 500 MG TAB.SR.12H PO SCH ×2 (09:44→21:22)
[2018-02-15] MEDS: CELECOXIB 200 MG CAP PO SCH (09:44)
[2018-02-15] MEDS: LOSARTAN 50 MG TABLET PO SCH (09:45)
[2018-02-15] MEDS: POTASSIUM CHLORIDE 20 MEQ ERTAB PO SCH (09:45)
[2018-02-15] MEDS: ASPIRIN 81MG TAB.CHEW PO SCH (09:46)
[2018-02-15] MEDS: CYANOCOBALAMIN (VITAMIN B-12) 1,000 MCG TABLET PO SCH (09:46)
[2018-02-15] MEDS: PREDNISONE 10 MG TABLET PO SCH (09:47)
[2018-02-15] MEDS: ENOXAPARIN SODIUM 30 MG/0.3 ML SQ SCH (09:47)
[2018-02-15 10:40] VITALS: BP 140/65
--- NOTE | 2018-02-15 11:14 | NUR ---
CM NOTE/GP CM spoke to Nash with [facility]. States they have received referral and will run benefits. Notified that pt needs 3 midnights and won't d/c until possibly tomorrow.
[2018-02-15] MEDS: AZITHROMYCIN 500MG+NS 250ML 250 ML IV SCH (13:00)
[2018-02-15 16:38] VITALS: BP 140/60
[2018-02-15] MEDS: CLOPIDOGREL BISULFATE 75 MG TAB PO SCH (16:48)
[2018-02-15 19:34] VITALS: BP 126/53
[2018-02-15] MEDS: ATORVASTATIN CALCIUM 40 MG TABLET PO SCH (21:22)
[2018-02-15] MEDS: ACETAMINOPHEN 325 MG TAB PO PRN (21:27)
[2018-02-15 23:12] VITALS: BP 124/56
[2018-02-16 03:36] VITALS: BP 140/65
[2018-02-16] MEDS: IPRATROPIUM/ALBUTEROL SULFATE 3 ML SOLUTION IH SCH ×4 (05:58→23:42)
[2018-02-16 06:04] LABS: BASOPHILS % (AUTO) 0.1 % (0.0-5.0); HEMATOCRIT 32.3 % (36-48); LYMPHOCYTES % (AUTO) 29.6 % (21.0-51.0); MEAN CORPUSCULAR HEMOGLOBIN 35.2 pg (27.0-33.0); MEAN CORPUSCULAR HGB CONC 33.1 g/dL (32.0-36.0); MEAN CORPUSCULAR VOLUME 106.4 fL (79-99); NEUTROPHILS % (AUTO) 60.3 % (40.0-77.0); NUCLEATED RED BLOOD CELLS 0.1 % (0.0-0.19); PLATELET COUNT (AUTO) 120 K/uL (130-400); RED BLOOD CELL COUNT(AUTO) 3.03 MIL/uL (4.00-5.50); RED CELL DISTRIBUTION WIDTH 13.3 % (11.0-15.5); WHITE BLOOD COUNT (AUTO) 8.9 K/uL (4.8-10.8)
[2018-02-16] MEDS: LEVOTHYROXINE 25 MCG TABLET PO SCH (06:16)
[2018-02-16] MEDS: INSULIN HUMULIN R 100 UNIT/ML 3ML SQ SCH ×4 (06:17→21:26)
[2018-02-16 06:21] LABS: CREATININE 1.2 mg/dL (0.5-1.5); POTASSIUM 4.2 mmol/L (3.5-5.1)
[2018-02-16] MEDS: INSULIN LISPRO 100 UNIT/ML 3ML SQ SCH (06:21)
[2018-02-16] MEDS: INSULIN GLARGINE 100 UNITS/ML 10 ML VIAL SQ SCH ×2 (06:21→21:25)
[2018-02-16 08:16] VITALS: BP 141/62
[2018-02-16] MEDS: RANOLAZINE 500 MG TAB.SR.12H PO SCH ×2 (08:40→20:08)
[2018-02-16] MEDS: PREDNISONE 10 MG TABLET PO SCH (08:40)
[2018-02-16] MEDS: GABAPENTIN 100 MG CAPSULE PO SCH ×2 (08:40→20:08)
[2018-02-16] MEDS: ASPIRIN 81MG TAB.CHEW PO SCH (08:41)
[2018-02-16] MEDS: FLUOXETINE HCL 20 MG CAPSULE PO SCH (08:41)
[2018-02-16] MEDS: POTASSIUM CHLORIDE 20 MEQ ERTAB PO SCH (08:41)
[2018-02-16] MEDS: LOSARTAN 50 MG TABLET PO SCH (08:41)
[2018-02-16] MEDS: CYANOCOBALAMIN (VITAMIN B-12) 1,000 MCG TABLET PO SCH (08:42)
[2018-02-16] MEDS: CELECOXIB 200 MG CAP PO SCH (08:42)
[2018-02-16] MEDS: **HM**Cholecalciferol (Vitamin D3) (Vitamin D3) 1,000 UNIT PO SCH (08:42)
[2018-02-16] MEDS: PANTOPRAZOLE SODIUM 40 MG TABLET.DR PO SCH ×2 (08:42)
[2018-02-16] MEDS: ASCORBIC ACID 500 MG TAB PO SCH ×2 (08:42→20:08)
[2018-02-16] MEDS: CLOTRIMAZOLE 30 GM CREAM.GM. TP SCH ×2 (08:43→21:10)
[2018-02-16] MEDS: ENOXAPARIN SODIUM 30 MG/0.3 ML SQ SCH (08:44)
[2018-02-16] MEDS ORDERED: FUROSEMIDE 20 MG TABLET PO SCH (09:00)
--- NOTE | 2018-02-16 10:45 | NUR ---
FOLLOW-UP COMPLETED. Pt CURRENTLY ON MECHANICAL SOFT/GROUND, THIN LIQUIDS WITH EXTRA GRAVY ON THE MEATS. Pt SEEN IN BED. Pt ATE BREAKFAST THIS AM AND STATES SHE WAS ABLE TO EAT BETTER. Pt PARTICIPATED IN TRIALS OF THIN LIQUIDS WITH NO S/S OF ASPIRATION. Pt STATES THAT THEY HAVE NOT BEEN BRINGING HER THE GRAVY WITH THE MEATS. COMPUTER NETWORK ENGINEER CALLED DIETARY FOR ORDER CLARIFICATION. Pt WITH ORDER FOR GRAVY WITH MEATS. RECOMMEND CONTINUED DIET Pt IS TOLERATING DIET WELL. COMPUTER NETWORK ENGINEER WILL FOLLOW-UP IN AN NEEDED BASIS. Addendum: 02/16/18 at [address] [facility] Amended: Links added.
--- NOTE | 2018-02-16 11:15 | NUR ---
Spoke to SKY Ramirez, still awaiting approval for [email or web address], notified her pt. will need EMS transport as she has not been able to get up with PT.
[2018-02-16] MEDS: AZITHROMYCIN 500MG+NS 250ML 250 ML IV SCH (13:35)
[2018-02-16 14:00] VITALS: BP 142/67
--- NOTE | 2018-02-16 15:12 | NUR ---
Faxed med list to [facility], , called MR for chart to be copied.
[2018-02-16] MEDS: CLOPIDOGREL BISULFATE 75 MG TAB PO SCH (16:32)
[2018-02-16 16:43] VITALS: BP 139/64
--- NOTE | 2018-02-16 17:35 | NUR ---
Notified AJ, RECORD PRESSMAN, pt. and her dtr. expressed concern about pt. having twitching occasionally and also concerned about IV antibiotics and need for PICC line. Pt's dtr. did call [facility] and they stated the could place a PICC there. FERNANDO states he will come and talk with them.
[2018-02-16] MEDS: LEVOFLOXACIN 500 MG/D5W 100 ML 100 ML IV SCH (17:36)
[2018-02-16] MEDS: ACETAMINOPHEN 325 MG TAB PO PRN (18:12)
[2018-02-16] MEDS: ATORVASTATIN CALCIUM 40 MG TABLET PO SCH (20:08)
[2018-02-16 20:12] VITALS: BP 138/69
[2018-02-17 00:17] VITALS: BP 128/56
[2018-02-17 04:44] VITALS: BP 113/50
[2018-02-17 04:57] LABS: BASOPHILS % (AUTO) 0.1 % (0.0-5.0); EOSINOPHILS % (AUTO) 0.1 % (0.0-8.0); HEMATOCRIT 31.6 % (36-48); LYMPHOCYTES % (AUTO) 35.1 % (21.0-51.0); MEAN CORPUSCULAR HEMOGLOBIN 36.2 pg (27.0-33.0); MEAN CORPUSCULAR HGB CONC 33.9 g/dL (32.0-36.0); MONOCYTES % (AUTO) 12.8 % (3.0-13.0); NEUTROPHILS % (AUTO) 51.9 % (40.0-77.0); PLATELET COUNT (AUTO) 129 K/uL (130-400); RED BLOOD CELL COUNT(AUTO) 2.95 MIL/uL (4.00-5.50); RED CELL DISTRIBUTION WIDTH 13.2 % (11.0-15.5); WHITE BLOOD COUNT (AUTO) 8.1 K/uL (4.8-10.8)
[2018-02-17] MEDS: IPRATROPIUM/ALBUTEROL SULFATE 3 ML SOLUTION IH SCH ×2 (05:13→11:01)
[2018-02-17 05:20] LABS: CREATININE 1.2 mg/dL (0.5-1.5); POTASSIUM 4.3 mmol/L (3.5-5.1)
[2018-02-17] MEDS: INSULIN LISPRO 100 UNIT/ML 3ML SQ SCH (06:13)
[2018-02-17] MEDS: INSULIN HUMULIN R 100 UNIT/ML 3ML SQ SCH ×2 (06:13→12:07)
[2018-02-17] MEDS: LEVOTHYROXINE 25 MCG TABLET PO SCH (06:17)
[2018-02-17] MEDS: INSULIN GLARGINE 100 UNITS/ML 10 ML VIAL SQ SCH (07:30)
[2018-02-17] MEDS: CELECOXIB 200 MG CAP PO SCH (08:21)
[2018-02-17] MEDS: RANOLAZINE 500 MG TAB.SR.12H PO SCH (08:21)
[2018-02-17] MEDS: ASPIRIN 81MG TAB.CHEW PO SCH (08:21)
[2018-02-17] MEDS: PANTOPRAZOLE SODIUM 40 MG TABLET.DR PO SCH ×2 (08:21→08:26)
[2018-02-17] MEDS: ASCORBIC ACID 500 MG TAB PO SCH (08:22)
[2018-02-17] MEDS: CYANOCOBALAMIN (VITAMIN B-12) 1,000 MCG TABLET PO SCH (08:22)
[2018-02-17] MEDS: PREDNISONE 10 MG TABLET PO SCH (08:22)
[2018-02-17 08:23] VITALS: BP 138/60
[2018-02-17] MEDS: GABAPENTIN 100 MG CAPSULE PO SCH (08:23)
[2018-02-17] MEDS: POTASSIUM CHLORIDE 20 MEQ ERTAB PO SCH (08:24)
[2018-02-17] MEDS: ACETAMINOPHEN 325 MG TAB PO PRN (08:24)
[2018-02-17] MEDS: FLUOXETINE HCL 20 MG CAPSULE PO SCH (08:25)
[2018-02-17] MEDS: **HM**Cholecalciferol (Vitamin D3) (Vitamin D3) 1,000 UNIT PO SCH (08:25)
[2018-02-17] MEDS: LOSARTAN 50 MG TABLET PO SCH (08:25)
[2018-02-17] MEDS: ENOXAPARIN SODIUM 30 MG/0.3 ML SQ SCH (08:28)
[2018-02-17] MEDS: TRIAMCINOLONE 0.025% 15 GM CREAM TP PRN (08:28)
[2018-02-17] MEDS: CLOTRIMAZOLE 30 GM CREAM.GM. TP SCH (09:00)
[2018-02-17] MEDS ORDERED: FUROSEMIDE 40 MG TABLET PO SCH (09:00)
[2018-02-17 11:19] VITALS: BP 128/57
--- NOTE | 2018-02-17 11:45 | NUR ---
Report called to NIMA Marques at [facility], will send city bus driver after 1pm.
== END 2018-02-17 14:53 | DRG 190 ==
LOC: EDH 09:10 → EDHIP 12:32 → 4BH 13:15
PROVIDERS: ADMIT Hospitalist; ATTEND Hospitalist
DX: J44.0 Chronic obstructive pulmonary disease with (acute) lower respiratory infection (principal); J18.9 Pneumonia, unspecified organism; N39.0 Urinary tract infection, site not specified; I25.10 Atherosclerotic heart disease of native coronary artery without angina pectoris; E11.9 Type 2 diabetes mellitus without complications; B96.20 Unspecified Escherichia coli [E. coli] as the cause of diseases classified elsewhere; I10 Essential (primary) hypertension
CPT/HCPCS: 36415; 70450; 71045; 72125; 80048; 80053; 81001; 82306; 82550; 82607; 82746; 82947; 82948; 83880; 84484; 85025; 85610; 85730; 87077; 87088; 87186; 87486; 87581; 87633; 87798; 90732; 92610; 93005; 94640; 94664; G0009; G0378; J0360; J0456; J0696; J1650; J1815; J1956; J2920; J2930; J7512